=== PATIENT | male | born 1965 | race Caucasian/White ===

== ENCOUNTER 2025-07-13 11:13 | Emergency (ER) | payer OTHER, SELFPAY ==
[2025-07-13 11:25] VITALS: BP 150/98; PULSE 83; RESP 18; TEMP 36.8; O2SAT 94; BMI 23.0
--- NOTE | 2025-07-13 11:33 | XR_ITS ---
Examination: Abdomen AP single view Technique: AP portable supine abdomen, single view Exam date and time: July 13, 2025, 1131 hours INDICATIONS: Abdominal pain this week. FINDINGS: Large amounts of stool throughout the colon No obstruction No free air Thoracolumbar transpedicular stabilization and fusion IMPRESSION: Large amounts of stool throughout the colon
[2025-07-13 12:18] LABS: Basophils # (Auto) 0.1 Thou/mm3 (0.0-0.2); Basophils % (Auto) 2 % (0-2.5); Eosinophils # (Auto) 0.5 Thou/mm3 (0.0-0.5); Eosinophils % (Auto) 6 % (0-10); Hematocrit 39.5 % (41.0-53.0); Hemoglobin 12.4 g/dL (13.5-16.0); Immature Granulocytes Auto 0.01 Thou/mm3 (0.00-0.00); Lymphocytes # (Auto) 2.2 Thou/mm3 (1.0-4.8); Lymphocytes % (Auto) 27 % (10-50); Mean Corpuscular HGB Conc 31.4 g/dl (31.0-37.0); Mean Corpuscular Hemoglobin 28.4 pg (25.0-35.0); Mean Corpuscular Volume 90 fL (80-100); Monocytes # (Auto) 0.7 Thou/mm3 (0.0-0.8); Monocytes % (Auto) 8 % (0-12); Neutrophils # (Auto) 4.9 Thou/mm3 (1.8-7.7); Neutrophils % (Auto) 58 % (37-80); Nucleated Red Blood Cell # 0.00 Thou/mm3 (0.00-0.00); Nucleated Red Blood Cell % 0 /100 WBC (0); Platelet Count 225 Thou/mm3 (140-440); RDW Standard Deviation 50.5 fL (35.1-43.9); Red Blood Count 4.37 Miln/mm3 (4.50-5.90); White Blood Count 8.4 Thou/mm3 (3.8-10.6)
[2025-07-13 12:46] LABS: Alanine Aminotransferase 10 U/L (10-49); Albumin, Serum 4.4 gm/dL (3.4-4.8); Albumin/Globulin Ratio 1.3 (1.2-2.2); Alkaline Phosphatase 99 U/L (46-116); Anion Gap 7 (7-16); Aspartate Amino Transferase 11 U/L (0-34); BUN/Creatinine Ratio 18 Ratio (12-20); Bilirubin,Total 0.2 mg/dL (0.3-1.2); Blood Urea Nitrogen 14 mg/dL (9-23); Calcium 9.6 mg/dL (8.3-10.6); Calcium (Corrected) 9.6 mg/dL (8.5-10.1); Carbon Dioxide 29.7 mMol/L (20.0-31.0); Chloride 106 mMol/L (98-107); Creatinine (Component) 0.8 mg/dL (0.6-1.3); Estimated Creatinine Clearance 107.1 mL/min (>60); Globulin 3.3 gm/dL (2.3-3.5); Glucose 87 mg/dL (74-106); Lipase 50 U/L (12-53); Osmolality,Calculated 284 (275-295); Potassium 4.1 mMol/L (3.4-5.1); Sodium 143 mMol/L (136-145); Total Protein 7.7 gm/dL (5.7-8.2); eGFR > 60 See Note
[2025-07-13 15:10] VITALS: BP 182/98; PULSE 96; RESP 16; O2SAT 96
--- NOTE | 2025-07-13 15:49 | PD.EDABDPN ---
ED Abdominal Pain RME/HPI General Chief Complaint: General Adult/Misc Complain Stated complaint: BOWEL CARE Time seen by provider: 07/13/25 11:20 Arrival date/time: 07/13/25 11:13 This is a case of 59-year-old male with history of paraplegic and chronic constipation history of present illness started 1 week prior to arrival in the emergency room patient has no bowel movement patient states that he has a Fleet enema at home no relief usually the patient have nurse coming to his house to do a bowel prep but the nurse did not come for a week patient is paraplegic's secondary to a fall injury persistence of the symptoms this patient decided to sought consult here in the emergency room Limitations: no limitations Related Data Previous Rx's ?Medication ?Instructions ?Recorded polyethylene glycol 3350 17 17 g PO QDAY PRN constipation #119 07/13/25 gram/dose oral powder (Miralax) grams Allergies Allergy/AdvReac Type Severity Reaction Status Date / Time No Known Allergies Allergy Verified 07/13/25 11:16 Review of Systems Review of Systems Systems Reviewed: All systems reviewed, normal except as documented Past Medical History Past Medical History CARDIAC: Negative Congestive Heart Failure RESPIRATORY: Negative Chronic Obstructive Pulmonary Disease (COPD) GENITOURINARY: Negative Renal Disease ENDOCRINE: Negative Diabetes Mellitus Type 1 or Diabetes Mellitus Type 2 Surgical History SURGICAL: Positive of Back Surgery Social History SMOKING STATUS: Never smoker ED Exam General Limitations: Present no limitations General appearance: Present alert, in no apparent distress and other (Patient is awake alert oriented not in distress nontoxic looking well-hydrated well-nourished) Head Head exam: Present atraumatic, normocephalic and normal inspection Eye Eye exam: Present normal appearance, PERRL and EOMI ENT ENT exam: Present normal exam, normal oropharynx, mucous membranes moist and mucous membranes dry Neck Neck exam: Present normal inspection, full ROM and trachea midline Chest Chest inspection: Present normal inspection and symmetric chest wall rise Respiratory Respiratory exam: Present normal lung sounds bilaterally Cardiovascular Cardiovascular exam: Present regular rate, normal rhythm and normal heart sounds Abdominal Exam Abdominal exam: Present soft and normal bowel sounds; Absent distention, tenderness, guarding, rebound, rigidity, diminished bowel sounds, hyperactive bowel sounds, hypoactive bowel sounds, organomegaly, psoas sign, obturator sign, Barber's sign, Rovsing's sign or tenderness at McBurney's Point Extremities Exam Extremities exam: Present normal inspection and full ROM Back Exam Back exam: Present normal inspection and full ROM Neurological Exam Neurological exam: Present alert, oriented X3, CN II-XII intact, reflexes normal and other (Patient is paraplegic); Absent motor sensory deficit Psychiatric Psychiatric exam: Present normal affect and normal mood Skin Skin exam: Present warm, dry, intact, normal color and other (Excellent skin turgor) Course Quality Measures none Orders Category Date Time Status Fleet [Enema Administration] NOW Care 07/13/25 11:33 Completed XR abdomen 1V Stat Exams 07/13/25 11:33 Completed CBC Stat Lab 07/13/25 12:04 Completed Comprehensive Metabolic Panel Stat Lab 07/13/25 12:04 Completed Lipase Stat Lab 07/13/25 12:04 Completed UA, C/S IF [Urinalysis, C/S if Indicated] Stat Lab 07/13/25 11:33 Ordered Vital Signs Vital signs: Vital Signs Temperature 98.2 F 07/13/25 11:25 Pulse Rate 83 07/13/25 11:25 Respiratory Rate 18 07/13/25 11:25 Blood Pressure 150/98 H 07/13/25 11:25 Pulse Oximetry (%) 94 L 07/13/25 11:25 Oxygen Delivery Method Room Air 07/13/25 11:25 Oxygen saturation is 94% no hypoxia Abdominal Pain MDM MDM Narrative MDM Narrative:: This is a case of 59-year-old male with history of paraplegic and chronic constipation history of present illness started 1 week prior to arrival in the emergency room patient has no bowel movement patient states that he has a Fleet enema at home no relief usually the patient have nurse coming to his house to do a bowel prep but the nurse did not come for a week patient is paraplegic's secondary to a fall injury persistence of the symptoms this patient decided to sought consult here in the emergency room physical examination patient is awake alert oriented not in distress nontoxic looking well-hydrated well-nourished abdominal exam is benign nonsurgical no guarding no rebound no rigidity no tenderness normal active bowel sounds negative psoas negative straight and negative Rovsing's negative McBurney's negative Barber sign negative CVA tenderness rectal exam noted no bleeding no fissure no ulcer a stool impacted with cerumen was noted blood test showed no leukocytosis no anemia kidney and liver function is normal no electrolyte imbalance patient refused urinalysis Fleet enema was given followed by the fecal impaction which the patient symptoms resolved patient have a big bowel movement after fecal impaction and Fleet enema at this point patient will be discharged has chronic constipation he was prescribed with MiraLAX to be taken as needed for constipation and he will continue the Fleet enema at home he will call the home health nurse for bowel prep as needed for constipation he was also advised to see GI specialist for chronic constipation for any worsening symptoms or any emergent concern return precaution in the emergency room was advised Patient was discharged with comfortable condition walking with stable gait. Patient verbalized no further complains explained diagnosis and answered patient question. Patient is comfortable with the proposed management plan including the need to follow up with his/her primary care physician and any specialist if applicable Discussed patient for any urgent condition or worsening sx, He/She needed to go to emergency room immediately or call 911. Patient acknowledge the responsibility to follow up as instructed and to monitor her/his symptoms. For any persistence of the symptoms for more than 3-5 days return precaution advised. Discussed the result of the test and was given printed discharge instruction Patient data External records reviewed:: [facility] previous records Clinical information provided by:: patient Social determinants that could affect healthcare access:: none Patient has the following chronic illnesses:: None How is presenting disease/condition affected by chronic disease/condition?: no chronic disease Evaluation data The following diagnostics were reviewed and interpreted by me:: lab results and radiology exam(s) Lab and/or radiology exams considered but not ordered:: Reviewed Interpretation Summary: Reviewed Medications / Prescriptions Medications or Prescriptions considered but not ordered:: Given Medication administrations:: Given Consultations Consultation(s) initiated? (list below): No Diagnosis Differential diagnosis abdominal pain: constipation and small bowel obstruction Most likely diagnosis given after review of the tests above:: Constipation Admission Indicated Admission indicated?: not indicated Explain why admission is indicated or not indicated:: Not indicated Admission Request Was there a request for admission?: No Admission Attestation Admission request attestation: Not indicated Disposition Plan Disposition Plan: Discharge Discharge Attestation Discharge Attestation: The patient and all family members were given an opportunity to ask questions and understood the discharge instructions. Discharge instructions specifically effects, indications for sooner follow up or return to the emergency department, and the expected course of current diagnosis. Patient condition: Stable Discharge Plan Plan Patient Disposition: HOME (Self Care) Patient condition on transfer: Stable Prescriptions/Referrals Prescriptions/Med Rec: New polyethylene glycol 3350 [Miralax] 17 gram/dose powder 17 g PO QDAY PRN (Reason: constipation) Qty: 119 0RF Rx Instructions: Mix 17 g of MiraLAX to 8 ounces of orange juice or water and take it as needed for constipation Problem List Clinical Impression: Chronic constipation, Paraplegia Patient/Caregiver Discharge Instructions Education Materials: Treating Constipation, Eating a High-Fiber Diet, ED Constipation (Adult) Additional Instructions: Follow-up with your primary care physician in 2 days for reevaluation and to be referred to capping machine operator for further evaluation and treatment of chronic constipation worsening symptoms or any emergent concern return to the emergency room immediately or call 911 take MiraLAX as needed for your constipation continue your enema as directed by your primary care physician follow-up also with your home care nurse regarding your chronic constipation Print Language: Czech Stand Alone Forms: Moni Award Info., Patient Portal Info Letter PA/PETROLOGIST Supervising Physician TESS/LORNA Supervising Physician: Dr. Dexter
== END 2025-07-13 15:11 | disposition home or self-care (01) ==
PROVIDERS: Nurse Practitioner Primary Care; Emergency Provider Family Medicine
DX: K59.09 Other constipation (principal); G82.20 Paraplegia, unspecified
CPT/HCPCS: 36415; 74018; 80053; 81001; 83690; 85025; 99283